=== PATIENT | female | born 1980 | race Caucasian/White ===

== ENCOUNTER → 2023-12-13 18:44 | Outpatient (CLI) | payer OTHER, SELFPAY ==
--- NOTE | 2023-12-13 18:47 | DI.MRI.S_ITS ---
PROCEDURE: MR ANKLE LT WO CON INDICATIONS: Pain in left foot TECHNIQUE: Noncontrast sagittal T1 spin echo and T2 fast spin echo with fat saturation, axial proton density fast spin echo and T2 fast spin echo with fat saturation, coronal T1 spin echo and T2 fast spin echo with fat saturation through the ankle/hindfoot. COMPARISON: None. FINDINGS: Image quality: Excellent. Bones and joints: There is marrow edema involving plantar aspect of mid to posterior calcaneus near plantar fascia insertion. No discrete fracture line is seen. Well-defined plantar calcaneal enthesophyte is noted. No other area of abnormal marrow signal. No osteochondral injuries of talar dome. There is small amount of tibiotalar joint effusion, no loose bodies. Medial structures: The posterior tibialis, flexor digitorum longus, and flexor hallucis longus tendons are intact. Small amount of fluid distending flexor tendon sheath is seen at the level of mid to distal talus and talonavicular joint. The posterior tibial neurovascular bundle appears normal within the tarsal tunnel, without extrinsic mass effect. The deltoid ligament and spring ligament are grossly intact. Lateral structures: The anterior talofibular ligament appears thickened. The calcaneofibular, and posterior talofibular ligaments appear intact. More superiorly, the anterior and posterior tibiofibular ligaments appear intact, as is the intermalleolar ligament. The tibiofibular syndesmosis is normal in width at 2 mm or less. The peroneus longus and brevis tendons are thickened with fluid distending tendon sheath at the level of lateral malleolus tip extending to their distal insertions. The sinus tarsi demonstrates normal fatty signal, without edema, fibrosis, or cyst formation. Visualized sinus tarsi components (cervical ligament, interosseous talocalcaneal ligament, roots of the inferior extensor retinaculum) appear normal. Anterior structures: The tibialis anterior, extensor hallucis longus, and extensor digitorum longus tendons appear intact. The dorsal talonavicular ligament appears intact. Posterior and plantar structures: Achilles tendon is intact. Medial band of plantar fascia is thickened with intrasubstance T2 hyperintense signal at its plantar calcaneal insertion. No abductor digiti quinti muscle atrophy to suggest Blanca neuropathy. IMPRESSION: 1. Well-defined plantar calcaneal enthesophyte with surrounding edema. No discrete fracture line. Thickened adjacent plantar fascia at its plantar calcaneal insertion with intrasubstance T2 hyperintense signal concerning for plantar fasciitis and low-grade partial-thickness tear. 2. No other area of abnormal marrow signal. No osteochondral injuries of talar dome. Small joint effusion, no loose bodies. 3. Low-grade tenosynovitis involving flexor tendons. 4. Low to moderate grade tenosynovitis involving peroneus tendons as described above. 5. Low-grade ATFL sprain. No ankle ligament rupture. Dictated by: Bernabe Bonds M.D. on 12/14/2023 at 9:34 Approved by: Bernabe Bonds M.D. on 12/14/2023 at 9:41
== END ==
PROVIDERS: Referring Provider Podiatrist; Visit Provider Podiatrist
DX: G57.52 Tarsal tunnel syndrome, left lower limb (principal); S93.492A Sprain of other ligament of left ankle, initial encounter; M65.872 Other synovitis and tenosynovitis, left ankle and foot; M77.32 Calcaneal spur, left foot; M25.475 Effusion, left foot; M79.672 Pain in left foot
CPT/HCPCS: 73721